=== PATIENT | female | born 1955 | race Caucasian/White ===

== ENCOUNTER → 2018-08-17 | Outpatient (CLI) | payer MEDICARE, OTHER | LOC: MAMMO 11:02 | PROVIDERS: ATTEND Internal Medicine Hematology & Oncology | DX: Z12.31 Encounter for screening mammogram for malignant neoplasm of breast (principal) | CPT/HCPCS: 77067 ==

== ENCOUNTER → 2018-09-19 | Outpatient (CLI) | payer MEDICARE, OTHER ==
--- NOTE | 2018-09-20 09:00 | Diagnostic Imaging Report ---
#[id number] - MGDXRT #UNILATERAL RIGHT DIGITAL DIAGNOSTIC MAMMOGRAM WITH SPOT COMPRESSION: 09/19/2018 Comparison is made to exam dated: 08/17/2018 mammogram - [facility]. Current study contains 3 films. There are scattered fibroglandular elements in the right breast. The small nodule in the right breast at the 1 o'clock position is again noted with focal spot comression. Ultrasound is recommended and will be performed today. No significant masses, calcifications, or other findings are seen in the breast. IMPRESSION: INCOMPLETE: NEEDS ADDITIONAL IMAGING EVALUATION Small nodule in the right breast persistent-ultrasound recommended. Donte Trinidad Jr., D.O. cw/:09/19/2018 15:56:32 Master Data Analyst: Pricilla CASTLE(Kerry)(M), [facility] letter sent: Additional Imaging Needed Mammogram BI-RADS: 0 Indeterminate
--- NOTE | 2018-09-20 09:01 | Diagnostic Imaging Report ---
#[id number] - USBRELIMRT ULTRASOUND OF THE RIGHT BREAST : 09/19/2018 Comparison is made to exams dated: 09/19/2018 mammogram and 08/17/2018 mammogram - [facility]. Focused color flow and real-time ultrasound were performed on the right breast. -At the 1 o'clock position 2 cm from the nipple there is a benign 3 x 3 x 4 mm cyst. This corresponds to the mammographic finding. IMPRESSION: BENIGN There is no sonographic evidence of malignancy. A 1 year screening mammogram is recommended. Donte Trinidad Jr., D.O. cw/:09/19/2018 16:00:04 Integration Project Manager: REY LIMON RDMS, [facility] letter sent: Normal Exam Ultrasound BI-RADS: 2 Benign
== END ==
LOC: MAMMO 14:30
PROVIDERS: ATTEND Internal Medicine Hematology & Oncology
DX: R92.2 Inconclusive mammogram (principal)

== ENCOUNTER → 2019-10-30 | Outpatient (CLI) | payer MEDICARE, OTHER ==
--- NOTE | 2019-10-31 08:53 | Diagnostic Imaging Report ---
#[id number] - MGSCRBIL #BILATERAL DIGITAL SCREENING MAMMOGRAM WITH CAD: 10/30/2019 CLINICAL: Routine screening. Comparison is made to exams dated: 09/19/2018 mammogram and 08/17/2018 mammogram - [facility]. Current study contains 4 films. There are scattered fibroglandular elements in both breasts. Current study was also evaluated with a Computer Aided Detection (CAD) system. Benign appearing calcifications are noted bilaterally. No significant masses, calcifications, or other findings are seen in either breast. IMPRESSION: BENIGN There is no mammographic evidence of malignancy. A 1 year screening mammogram is recommended. The patient will be notified by letter of the results. YOJANA RICHARDS M.D. ct/penrad:10/30/2019 15:10:02 Manager Home: Pricilla CASTLE(Kerry)(Isaiah), [facility] letter sent: Normal Exam Mammogram BI-RADS: 2 Benign
== END ==
LOC: MAMMO 08:50
PROVIDERS: ATTEND Internal Medicine
DX: Z12.31 Encounter for screening mammogram for malignant neoplasm of breast (principal)
CPT/HCPCS: 77067